=== PATIENT | female | born 1940 | race Two or more races ===

== ENCOUNTER 2018-12-02 13:23 | Outpatient (CLI) | payer OTHER ==
[~2018-12-02] VITALS: Ht 152.4 cm; Wt 61.2 kg
== END 2018-12-02 13:40 | disposition home or self-care (01) ==
LOC: OFIC 805 13:23
DX: H61.23 Impacted cerumen, bilateral (principal); H91.90 Unspecified hearing loss, unspecified ear; J30.89 Other allergic rhinitis

== ENCOUNTER 2020-06-11 07:30 | Outpatient (CLI) | payer OTHER | END 2020-06-11 07:39 | disposition home or self-care (01) | LOC: LAB 07:30 | PROVIDERS: ATTEND Internal Medicine Cardiovascular Disease | DX: I10 Essential (primary) hypertension (principal); E11.9 Type 2 diabetes mellitus without complications; E03.8 Other specified hypothyroidism; E78.2 Mixed hyperlipidemia ==

== ENCOUNTER 2020-10-05 06:46 | Outpatient (CLI) | payer OTHER | END 2020-10-05 06:50 | disposition home or self-care (01) | LOC: LAB 06:46 | PROVIDERS: ATTEND Internal Medicine Cardiovascular Disease | DX: I10 Essential (primary) hypertension (principal); E11.9 Type 2 diabetes mellitus without complications; E78.2 Mixed hyperlipidemia; E03.5 Myxedema coma; Z12.11 Encounter for screening for malignant neoplasm of colon; E55.9 Vitamin D deficiency, unspecified ==

== ENCOUNTER → 2020-10-06 11:03 | Outpatient (CLI) | payer OTHER | END | disposition home or self-care (01) | LOC: LAB 11:03 | PROVIDERS: ATTEND Internal Medicine Cardiovascular Disease | DX: I10 Essential (primary) hypertension (principal); E11.9 Type 2 diabetes mellitus without complications; E03.8 Other specified hypothyroidism; E78.2 Mixed hyperlipidemia; Z12.11 Encounter for screening for malignant neoplasm of colon; E55.9 Vitamin D deficiency, unspecified ==